=== PATIENT | male | born 1960 | race Caucasian/White ===

== ENCOUNTER → 2018-12-15 | Day surgery (SDC) | payer BC ==
[~2018-12-15] MED LIST: Buffered Lidocaine 1% SYRIN* 1 ML/SYRINGE INTRADERM ONE; Dexamethasone IV* 4 MG/ML 1 ML (4 MG) ONE; DiMENhydriNATE IV* 50 MG/ML VIAL IV PUSH PRN; EPINEPHRINE 1 MG/ML 1 ML VIAL ONE; Lactated Ringers 1000 ML Bag* 1,000 ML IV SCH; Lidocaine 1% w EPI 1:100,000* MDV 20 ML VIAL ONE; Lidocaine 2% PF * 5 ML VIAL ONE; Lidocaine 4% TOPICAL* 50 ML TOP.SOLN ONE; Metoclopramide IV* 5 MG/ML 2 ML VIAL ONE; Midazolam* 1 MG/ML 2 ML VIAL (2 MG) ONE; Naloxone* 0.4 MG/ML 1 ML VIAL IV PRN; Ondansetron INJ* 2 MG/ML VIAL ONE; Oxymetazoline 0.05% NASAL SPR* 15 ML BTL ONE; Propofol* 10 MG/ML 20 ML BTL ONE; Remifentanil* 2 MG VIAL ONE; Rocuronium* 10 MG/ML VIAL ONE; Succinylcholine* 20 MG/ML 10 ML VIAL ONE; Sugammadex * 200 MG/2 ML VIAL IV PUSH ONE; fentaNYL* 50 MCG/ML 2 ML VIAL (100 MCG VIAL) IV PRN; fentaNYL* 50 MCG/ML 2 ML VIAL (100 MCG VIAL) ONE; oxyCODONE TAB* 5 MG TAB ONE; oxyCODONE TAB* 5 MG TAB PO PRN
[2018-12-15 12:48] VITALS: BP 140/90
--- NOTE | 2018-12-15 21:36 | OP ---
DATE OF OPERATION: 12/15/18 - [facility] DATE OF : 64 SURGEON: Paulo Palacios MD. ASBESTOS REMOVAL SUPERVISOR: None. ANESTHESIA: General. PRE-OP DIAGNOSIS: Neoplasm, uncertain behavior, tongue base. POST-OP DIAGNOSIS: Neoplasm, uncertain behavior, tongue base. OPERATIVE PROCEDURE: Direct laryngoscopy with biopsies. ESTIMATED BLOOD LOSS: Less than 10 cc. SPECIMENS: Biopsies of tongue base. INDICATIONS: This is a 58-year-old male who presented to the office with oropharyngeal and throat pain. On exam in the office, was noted to have an exophytic lesion involving the lingual aspect of the right side of the jaw with extension onto the retromolar trigone. 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 Laryngoscopy in the office revealed what appeared to be a probable second primary in the vallecula to the right of midline, and so the patient was scheduled for biopsy of that lesion under anesthesia. DESCRIPTION OF PROCEDURE: On 12/15/18, the patient was brought to the operating room, general anesthesia was induced and an oral endotracheal tube was placed. The patient was draped, the table turned, and a time-out was performed. The tongue base was palpated manually and there was what was felt to be some firm abnormal tissue in the region of the vallecula. A variety of laryngoscopes including a sliding Zackery and Johana style laryngoscope were used to try to obtain optimal views of the tongue base and vallecula region. Ultimately, one was selected and was placed into suspension. A firm somewhat exophytic mass with central ulceration was noted in the tongue base region deep in the vallecula with some central ulceration. Multiple biopsies were taken with a cup forceps. 1/2 x 1/2 cottonoid pledgets with epinephrine were then placed to the biopsy sites and the laryngoscope was removed. After several minutes, the epinephrine-soaked pledgets were removed. Repeat laryngoscopy was performed. There appeared to be good hemostasis, and so the patient was turned to the care of the anesthesiologist. Prior to the use of the laryngoscope, a tooth guard was used over the upper teeth. This was removed prior to completion of the case. The patient was then extubated and delivered to the PACU in stable condition. [id number]/[facility] #: [id number] [facility]
== END | disposition home or self-care (01) ==
LOC: OR 09:01
PROVIDERS: ATTEND Otolaryngology
DX: C01 Malignant neoplasm of base of tongue (principal); Z72.0 Tobacco use; M54.2 Cervicalgia; F41.9 Anxiety disorder, unspecified; F10.20 Alcohol dependence, uncomplicated
CPT/HCPCS: 88305; 88342; 88365; A9270-GY; J0330; J1100; J2250; J2405; J2704; J2765; J3010

== ENCOUNTER 2019-01-11 14:04 | Observation (INO) | payer BC ==
--- OUTSIDE RECORDS SUMMARY | 2019-01-11 16:08 | XMS REPORT | Continuity of Care Document ---
:1960 External Reference #:[id number] Author Name Paulo Palacios M.D. 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 Tablets Omeprazole-Sodium 1 by mouth every Paulo Palacios, 12/06/2018 Bicarbonate day M.D. 40-1100mg Capsules [facility] Vitamin B12 please take one Paulo Palacios, 12/06/2018 1000mcg daily M.D. Tablets Ibuprofen 1 tab by mouth 60tabs Paulo Palacios, 12/06/2018 800mg Tablets every 8 hours as M.D. needed for pain Zinc Gluconate 1 by mouth every Unknown 50mg day Tablets Vitamin B1 1 Tab by mouth Unknown 250mg daily Tablets Vitamin D3 Super 1 by mouth every Unknown Strength day 50mcg (2000 Ut) Capsules Multi Vitamin Daily 1 by mouth every Unknown day Tablets Finasteride 1 1/4 by mouth Unknown 1mg Tablets every day Biotin 1 by mouth once Unknown 5000mcg Capsules a day Bupropion HCL ER (SR) 1 by mouth every Unknown day 150mg Tablets ER 12HR Immunizations CPT Code Status Date Vaccine Lot # 50545 Given 02/03/2003 Influenza Virus 3Yrs & Over [id number] Given 12/21/2001 Influenza Virus 3Yrs & Over Vital Signs Date Vital Result Comment 01/03/2019 10:57am Heart Rate 62 /min BP Systolic Sitting 120 mmHg BP Diastolic Sitting 84 mmHg Respiratory Rate 16 /min Pain Level 7 O2 % BldC Oximetry 97 % 12/20/2018 10:17am Heart Rate 71 /min BP Systolic Sitting 128 mmHg BP Diastolic Sitting 96 mmHg Body Temperature 98.2 F Pain Level 7 O2 % BldC Oximetry 96 % Results Test Acquired Date Facility Test Result H/L Range Note Comp Metabolic 12/29/2018 [facility] Sodium 143 mmol/L Normal 135-[address] [place] [address] [phone] Potassium 4.1 mmol/L Normal 3.5-5.0 Chloride 106 mmol/L Normal 101-111 Co2 Carbon Dioxide 30 mmol/L Normal 22-32 Anion Gap 7 mmol/L Normal 2-11 Glucose 94 mg/dL Normal 70-100 Blood Urea Nitrogen 22 mg/dL Normal 6-24 Creatinine 1.02 mg/dL Normal 0.67-1.17 BUN/Creatinine Ratio 21.6 High 8-20 Calcium 9.8 mg/dL Normal 8.6-10.3 Total Protein 7.1 g/dL Normal 6.4-8.9 Albumin 4.2 g/dL Normal 3.2-5.2 Globulin 2.9 g/dL Normal 2-4 Albumin/Globulin Ratio 1.4 Normal 1-3 Total Bilirubin 0.40 mg/dL Normal 0.2-1.0 Alkaline Phosphatase 91 U/L Normal 34-104 Alt 19 U/L Normal 7-52 Ast 15 U/L Normal 13-39 Egfr Non- 75.5 >60 Egfr 91.4 >60 1 CBC Auto 12/29/2018 [facility] White Blood 12.7 10^3/uL High 3.5-10.[address] [place] [address] [phone] Red Blood Count 4.73 10^6/uL Normal 4.18-5.48 Hemoglobin 13.4 g/dL Low 14.0-18.0 Hematocrit 41 % Low 42-52 Mean Corpuscular Volume 86 fL Normal 80-94 Mean Corpuscular Hemoglobin 28 pg Normal 27-31 Mean Corpuscular HGB Conc 33 g/dL Normal 31-36 Red Cell Distribution Width 13 % Normal 10-15 Platelet Count 300 10^3/uL Normal 150-450 Mean Platelet Volume 7.0 fL Low 7.4-10.4 Abs Neutrophils 8.4 10^3/uL High 1.5-7.7 Abs Lymphocytes 2.5 10^3/uL Normal 1.0-4.8 Abs Monocytes 1.2 10^3/uL High 0-0.8 Abs Eosinophils 0.5 10^3/uL Normal 0-0.6 Abs Basophils 0.1 10^3/uL Normal 0-0.2 Abs Nucleated RBC 0.0 10^3/uL Granulocyte % 65.9 % Lymphocyte % 20.1 % Monocyte % 9.4 % Eosinophil % 4.1 % Basophil % 0.5 % Nucleated Red Blood Cells % 0.1 Laboratory test 12/28/2018 [facility] Point of Care 95 mg/dL Normal 70-[address] [place] [address] [phone] Surgical 12/15/2018 [facility] Surgical SEE RESULT [address] [place] [address] [phone] PDFReport SEE IMAGE Surgical 12/06/2018 [facility] Surgical SEE RESULT 4, [address] Pathology BELOW [place] [id number] [phone] PDFReport [id number] <SEE NOTE> Order 12/06/2018 [facility] Biopsy Specimen for <pending> [address] Evaluation [place] [id number] [phone] 1 Because ethnic data is not always readily available, this report includes an eGFR for both -Americans and non- Americans. The National Kidney Disease Education Program (NKDEP) does not endorse the use of the MDRD equation for patients that are not between the ages of 18 and 70, are , have extremes of body size, muscle mass, or nutritional status, or are non- or non-. According to the National Kidney Foundation, irrespective of diagnosis, the stage of the disease is based on the level of kidney function: Stage Description GFR(mL/min/1.73 m(2)) 1 Kidney damage with normal or decreased GFR 90 2 Kidney damage with mild decrease in GFR 60-89 3 Moderate decrease in GFR 30-59 4 Severe decrease in GFR 15-29 5 Kidney failure <15 (or dialysis) 2 Coding Clerks Supervisor: [id number] 3 SEE RESULT BELOW Name: WESLEY SHERIDAN : [address]: Paulo Palacios MD Acct: [id number] Unit: [id number] AGE: 58 Location: OR Re12/15/18 SEX: M Status: REG [facility] SPEC: [id number] [place]: 12/15/18- [facility] DR: Paulo Palacios MD REQ: [id number] RECD: 12/15/18941 STATUS: SOUT _ ORDERED: LEVEL 4, IMMUNO-FIRST ADDENDUM Repeat p16 immunohistochemical staining, with appropriately reacting controls , is positive in benign surface epithelium and negative in invasive carcinoma. Addendum Signed (signature on file) Sherley Layton MD 01/11 0930 A p16 immunohistochemical stain, with appropriately reacting controls, was performed and is positive in surface epithelium but negative in invasive carcinoma. Addendum Signed (signature on file) Sherley Layton MD 1009 FINAL DIAGNOSIS Tongue base, biopsies: -- Invasive, moderately differentiated squamous cell carcinoma. -- Extent and depth of invasion cannot be assessed based on this limited biopsies. Comment: An immunohistochemical stain for p16 (HPV surrogate marker close (is pending and will be reported in an addendum. Dr. Layton has reviewed this case and concurs. CONTINUED ON NEXT PAGE DEPARTMENT OF PATHOLOGY, [address] [place] [address] Kyle Urrutia M.D. Director [facility] # [id number] PRE-OPERATIVE DIAGNOSIS Lesion-vallecular GROSS DESCRIPTION The specimen is received in formalin labeled, Tongue Base Biopsies, and consists of three rubio-pink irregular soft tissue fragments ranging from 0.6 x 0.4 x 0.3 cm to 1.1 x 0.8 x 0.4 cm. The two largest fragments are differentially inked, serially sectioned and the specimen is entirely submitted in one cassette. Signed by and Reported on: Kyle Urrutia MD 1330 END OF REPORT DEPARTMENT OF PATHOLOGY, [address] [place] [address] Kyle Urrutia M.D. 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 Addendum Signed (signature on file) Sherley Layton MD 1638 FINAL DIAGNOSIS Right retromolar trigone, biopsy: -- Invasive squamous cell carcinoma, well-differentiated. -- Lesional cells extend to the biopsy base and to at least one lateral specimen edge. PRE-OPERATIVE DIAGNOSIS Malignant neoplasm of mandible. GROSS DESCRIPTION The specimen is received in formalin with no source identified and a requisition labeled, Exophytic Mass of the Right Retromolar Trigone, and consists of a 1.5 x 0.6 x 0.3 cm aggregate of rubio-pink irregular soft tissue fragments which is submitted entirely in one cassette. CONTINUED ON NEXT PAGE DEPARTMENT OF PATHOLOGY, [facility] [employer] [place] [address] Kyle Urrutia M.D. Director [facility] # [id number] Signed by and Reported on: Sherley Layton MD 12/08/18 1043 END OF REPORT DEPARTMENT OF PATHOLOGY, [facility] [employer] [place] [address] Kyle Urrutia M.D. Director [facility] # [id number] Procedures Date Code Description Status 12/06/2018 57942 Biopsy;Oropharynx Completed 12/06/2018 44494 Fibroptic Laryngoscopy Completed Medical Devices Description No Information Available Encounters Type Date Location Provider Dx Diagnosis Office Visit 12/20/2018 [facility] C41.1 Malignant neoplasm 10:00a [facility] C01 Malignant neoplasm of base of tongue Office Visit 12/06/2018 3:00p [facility] D37.05 Neoplasm of [facility] 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 12/20/2018 C01 Malignant neoplasm of base of tongue Paulo Palacios M.D. 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 12/06/2018 R07.0 Pain in throat Paulo Palacios M.D. Plan of Treatment Future Appointment(s):03/21/2019 9:15 am - Paulo Palacios M.D. at [facility] J[facility]unrp77/28/2019 - Paulo Palacios M.D.C41.1 Malignant neoplasm of skepxolpQ92 Malignant neoplasm of base of tongue Functional Status Description No Information Available Mental Status Description No Information Available Referrals Refer to Reason for Referral Status Appt Date Mike Boykin MD MALIGNANT NEOPLASM OF THE MANDIBLE Sent 12/22/[address] [facility] [place] [id number] [phone] Bertha Aldana MD malignant neoplasm of the mandible Scheduled 12/28/2018 [address] [place] [address] [phone]
--- OUTSIDE RECORDS SUMMARY | 2019-01-11 16:08 | XMS REPORT | Continuity of Care Document ---
:1960 External Reference #:[id number] Author Name Chana Bergman PA Address [address] [place] [address] Care Team Providers Name Role Phone Manny Calderón MD - Family Care Team Information Public Health Nutritionist Medicine Paulo Palacios DR Care Team Information Public Health Nutritionist [phone] Problems Active Problems Provider Date Adjustment disorder with mixed emotional Topher Jeong DO Onset: 2012 features Alcohol dependence Topher Jeong DO Onset: 02/03/2012 Elevated levels of transaminase & lactic acid Topher Jeong DO Onset: dehydrogenase Social History Type Date Description Comments Sex Unknown Tobacco Use Start: Unknown currently smokes 1/2 Pack Daily Smoking Status Reviewed: 12/31/17 currently smokes 1/2 Pack Daily ETOH Use Has consumed alcohol in the past Tobacco Use Start: Unknown Patient is a current smoker, smokes 1 and 1/2 ppd every day Allergies, Adverse Reactions, Alerts Description No Known Drug Allergies Medications Active Medications SIG Qnty Indications Ordering Date Provider Lidocaine Viscous HCL swish and spit 15 300ml J02.9 Tapan Hoff, 2018 milliliters three DO 2% Solution times daily as needed Bupropion 1 tablet by mouth 180tabs F17.208 Tapan Hoff, 08/27/2018 Hydrochloride ER (SR) twice daily DO 150mg Tablets ER 12HR Omeprazole 1 by mouth every 90caps K29.00 Tapan Hoff, 12/25/2017 40mg day DO Capsules K21.9 Paroxetine HCL 1 by mouth every day 90tabs F43.23 Tapan Hoff DO 01/19 30mg Tablets Vitamin D3 1 by mouth every day Jean-PaulTopher quinn, 12/14/2015 1000Unit with meal with DO Chewtabs meat/fat/oil with dinner One Daily Mens Jean-PaulCheryl quinns, 03/16/2014 Tablets DO Vitamin B-12 ER Jean-PaulCheryl quinns, 12/09/2013 1000mcg DO Tablets ER Thiamine HCL 2 po qd Jena-PaulTimTopher, 03/11/2012 100mg DO Tablets Finasteride 1 by mouth every day Unknown 1mg Tablets DR Rice History Medications Amoxicillin/Clavulanate 1 by mouth 14tabs K11.5 Luis Eduardo, 10/13/2018 - Potassium twice a day DO Tapan 10/20/2018 875-125mg Tablets x 7 days Immunizations CPT Code Status Date Vaccine Reaction Lot # [id number] Given 08/27/2018 Pneumococcal 23 Immunization [id number] Adult Or Immunosuppressed Patient Q2039 Given 12/20/2017 Flu Vaccine NOS 51093 Given 12/29/2016 Afluria Or Fluvirin Flu Vac Given at [facility] Intramuscular 281 Q2035 Given 12/15/2015 Afluria Imunization Given At Pharmacy RA/222 Q2035 Given 12/15/2015 Afluria Imunization Given At Pharmacy [facility]/222 Q2037 Given 12/14/2014 Fluvirin Immunization 80368 Given 08/17/2014 Tdap (Adacel) Ages 7 And [id number] Above Only 24231 Given 11/10/2013 Afluria Or Fluvirin Flu Vac RECEIVED AT RA/222 Intramuscular 39551 Given 12/09/2012 Afluria Or Fluvirin Flu Vac Intramuscular 83146 Given 12/28/2009 Afluria Or Fluvirin Flu Vac Intramuscular 36924 Given 12/05/2008 Afluria Or Fluvirin Flu Vac Intramuscular 29085 Given 12/10/2007 Afluria Or Fluvirin Flu Vac Intramuscular 66584 Given 12/09/2006 Afluria Or Fluvirin Flu Vac Intramuscular 20831 Given 01/06/2006 Afluria Or Fluvirin Flu Vac Intramuscular 84490 Given 01/14/2005 Afluria Or Fluvirin Flu Vac Intramuscular 60348 Given 01/14/2005 Afluria Or Fluvirin Flu Vac Intramuscular 39634 Refused 12/09/2018 Influenza Vac, Quadrivalent, Split, 0.5mL Dosage, Im Use Vital Signs Date Vital Result Comment 12/09/2018 2:14pm Body Temperature 98.3 F Weight 220.00 lb Heart Rate 83 /min BP Systolic 122 mmHg BP Diastolic 82 mmHg Respiratory Rate 18 /min Height 74 inches 6'2" O2 % BldC Oximetry 94 % BMI (Body Mass Index) 28.2 kg/m2 11/22/2018 2:27pm Body Temperature 98.5 F Weight 223.00 lb Heart Rate 76 /min BP Systolic 120 mmHg BP Diastolic 70 mmHg Respiratory Rate 18 /min Height 74 inches 6'2" BMI (Body Mass Index) 28.6 kg/m2 Results Test Date Facility Test Result H/L Range Note CBC with Auto Diff-[facility]cmg 11/22/2018 [facility] WBC 10.8 K/uL 4.1-11.0 RBC 4.87 M/uL 4.60-6.10 Hemoglobin 14.3 gm/dL 13.5-18.0 Hematocrit 42.2 % 41.0-53.0 MCV 86.6 fL 80.0-97.0 MCH 29.3 pg 27.0-32.0 MCHC 33.8 g/dL 32.0-36.0 RDW 12.8 % 11.5-14.5 PLT Count 294 K/ul 140-400 MPV 7.7 FL 7.1-10.7 Neutrophil 60.4 % 35.0-75.0 Lymphocyte 25.9 % 16.0-52.0 Monocyte 8.9 % 2.0-10.0 Eosinophil 3.9 % 0.0-5.0 Basophil 0.9 % 0.0-4.0 Abs Neutrophils 6.5 K/uL 2.1-8.0 Abs Lymphocytes 2.8 K/uL 0.8-5.5 Abs Monocytes 1.0 K/uL 0.1-1.0 Abs Eosinophils 0.4 K/uL 0.0-0.5 Abs Basophils 0.1 K/uL 0.0-0.3 Comprehensive Met Panel-[facility] 11/22/2018 [facility] Sodium 140 mmol/L 135- 146 1 Potassium 3.6 mmol/L 3.5-5.2 Chloride# 103 mmol/L 97-110 2 Carbon Dioxide 28 mmol/L 24-34 Calcium 9.4 mg/dL 8.5-10.5 3 Glucose 69 mg/dL Low 70-105 BUN 15 mg/dL 6-26 Creatinine 1.0 mg/dL 0.5-1.4 Total Protein 6.3 g/dL 6.0-8.0 Albumin 4.1 g/dL 3.6-4.9 Globulin 2.2 g/dL 2.0-3.5 A/G Ratio 1.9 Ratio 1.0-2.2 Total Bilirubin 0.6 mg/dL 0.1-1.3 Alkaline Phosphatase 81 U/L 24-140 Alt 29 U/L 3-42 Ast 29 U/L 8-42 Anion Gap 9 mmol/L 5-15 4 Female Egfr 61 >60 5 Male Egfr 81 >60 6 Lyme Igm/Igg AB -RL 11/22/2018 [facility] Lyme Igm/Igg AB @ NEGATIVE (Neg) 7 Ebv Evaluation -RL 11/22/2018 [facility] Ebv Vca Igg @ POSITIVE (Neg) 8 Ebv Vca Igm @ NEGATIVE (Neg) Ebv Early Ag Igg @ NEGATIVE (Neg) Ebv Nuclear Ag Igg @ POSITIVE (Neg) 9 Laboratory test 11/22/2018 [facility] Anti-Streptolysn O <200 IU/mL (0-200 ) 10 finding CBC with Auto 08/20/2018 [facility] WBC 7.6 K/uL 4.1-11.0 Diff-fcmg RBC 4.98 M/uL 4.60-6.10 Hemoglobin 14.5 gm/dL 13.5-18.0 Hematocrit 43.6 % 41.0-53.0 MCV 87.5 fL 80.0-97.0 MCH 29.2 pg 27.0-32.0 MCHC 33.4 g/dL 32.0-36.0 RDW 12.9 % 11.5-14.5 PLT Count 279 K/ul 140-400 MPV 7.8 FL 7.1-10.7 Neutrophil 50.0 % 35.0-75.0 Lymphocyte 37.4 % 16.0-52.0 Monocyte 7.4 % 2.0-10.0 Eosinophil 4.1 % 0.0-5.0 Basophil 1.1 % 0.0-4.0 Abs Neutrophils 3.8 K/uL 2.1-8.0 Abs Lymphocytes 2.9 K/uL 0.8-5.5 Abs Monocytes 0.6 K/uL 0.1-1.0 Abs Eosinophils 0.3 K/uL 0.0-0.5 Abs Basophils 0.1 K/uL 0.0-0.3 Comprehensive Met Panel-[facility] 08/20/2018 [facility] Sodium 140 mmol/L 135- 146 11 Potassium 4.0 mmol/L 3.5-5.2 Chloride# 103 mmol/L 97-110 12 Carbon Dioxide 29 mmol/L 24-34 Calcium 9.8 mg/dL 8.5-10.5 13 Glucose 86 mg/dL 70-105 BUN 15 mg/dL 6-26 Creatinine 1.1 mg/dL 0.5-1.4 Total Protein 6.5 g/dL 6.0-8.0 Albumin 4.3 g/dL 3.6-4.9 Globulin 2.2 g/dL 2.0-3.5 A/G Ratio 2.0 Ratio 1.0-2.2 Total Bilirubin 0.7 mg/dL 0.1-1.3 Alkaline Phosphatase 74 U/L 24-140 Alt 34 U/L 3-42 Ast 32 U/L 8-42 Anion Gap 8 mmol/L 5-15 14 Female Egfr 55 Low >60 15 Male Egfr 74 >60 16 Laboratory test finding 08/20/2018 [facility] Magnesium 2.0 mg/dL 1.5-2.7 Vitamin D 25 Hydroxy 46 ng/mL 30-100 17 1 Updated reference range on new analyzer 2 Updated reference range on new analyzer 3 Updated reference range 06-23-2018 4 Updated Reference Range 5 Concerning GFR Guidelines for Americans: Normal function or mild renal disease, if clinically at risk: >/= 60 mL/min Moderately decreased: 30-59 Severely decreased: 15-29 Renal failure: <15 There is reduced accuracy above 60ml/min/1.73 m squared, but the numeric value may be clinically useful in the near 60 range 6 Concerning GFR Guidelines: Normal function or mild renal disease, if clinically at risk: >/= 60 mL/min Moderately decreased: 30-59 Severely decreased: 15-29 Renal failure: <15 There is reduced accuracy above 60ml/min/1.73 m squared, but the numeric value may be clinically useful in the near 60 range Glomerular Filtration Rate (GFR) is estimated based on the CKD-EPI equation, which assumes a steady state for creatinine as recommended by the National Kidney Disease Education Program in conjunction with the National Institutes of Health and the National Kidney Foundation. Clinical conditions in which it may be necessary to measure GFR by using clearance methods include extremes of age and body size, severe malnutrition or obesity, diseases of skeletal muscle, paraplegia or quadriplegia, vegetarian diet, rapidly changing kidney function, and calculation of the dose of potentially toxic drugs that are excreted by the kidneys. 7 A Negative serologic test for Lyme Disease indicates no serologic evidence of infection with B burgdorferi at the time this specimen was collected. A repeat specimen should be collected in 2 to 4 weeks if clinically indicated. Unless otherwise specified, testing [place] [address] 8 May indicate a current or previous infection. 9 May indicate a current or previous infection. Unless otherwise specified, testing performed [place] [address] 10 Unless otherwise specified, testing [place] [address] 11 Updated reference range on new analyzer 12 Updated reference range on new analyzer 13 Updated reference range 06-23-2018 14 Updated Reference Range 15 Concerning GFR Guidelines for Americans: Normal function or mild renal disease, if clinically at risk: >/= 60 mL/min Moderately decreased: 30-59 Severely decreased: 15-29 Renal failure: <15 There is reduced accuracy above 60ml/min/1.73 m squared, but the numeric value may be clinically useful in the near 60 range 16 Concerning GFR Guidelines: Normal function or mild renal disease, if clinically at risk: >/= 60 mL/min Moderately decreased: 30-59 Severely decreased: 15-29 Renal failure: <15 There is reduced accuracy above 60ml/min/1.73 m squared, but the numeric value may be clinically useful in the near 60 range Glomerular Filtration Rate (GFR) is estimated based on the CKD-EPI equation, which assumes a steady state for creatinine as recommended by the National Kidney Disease Education Program in conjunction with the National Institutes of Health and the National Kidney Foundation. Clinical conditions in which it may be necessary to measure GFR by using clearance methods include extremes of age and body size, severe malnutrition or obesity, diseases of skeletal muscle, paraplegia or quadriplegia, vegetarian diet, rapidly changing kidney function, and calculation of the dose of potentially toxic drugs that are excreted by the kidneys. 17 Clinical Guidelines for recommended serum 25(OH)Vitamin D Deficient at less than 20 ng/mL Insufficient at 20 to <30 ng/mL Sufficient at 30-100 ng/mL Toxicity at greater than 100 ng/mL Procedures Date Code Description Status 12/09/2018 06663 Measure Blood Oxygen Level Single Determination Completed 12/09/2018 87540 Electrocardiogram Complete Completed 10/13/2018 95627 Measure Blood Oxygen Level Single Determination Completed 06/03/2012 06100984 Colonoscopy Completed Medical Devices Description No Information Available Encounters Type Date Location Provider Dx Diagnosis Office Visit 11/22/2018 [facility] Chana Bergman PA J02.9 Acute pharyngitis, 2:30p unspecified M54.2 Cervicalgia Z68.28 Body mass index (BMI) 28.0-28.9, adult Office Visit 10/13/2018 10:45a [facility] Chana Bergman PA K11.5 Sialolithiasis Z68.29 Body mass index (BMI) 29.0-29.9, adult Office Visit 08/27/2018 3:00p 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 Chana Bergman PA 12/09/2018 Z01.818 Encounter for other preprocedural examination Schedule, Laboratory 12/09/2018 Z68.28 Body mass index (BMI) 28.0-28.9, adult Chana Bergman PA 11/22/2018 M54.2 Cervicalgia Chana Bergman PA 11/22/2018 J02.9 Acute pharyngitis, unspecified Chana Bergman PA 11/22/2018 J02.9 Acute pharyngitis, unspecified Chana Bergman PA 11/22/2018 M54.2 Cervicalgia Chana Bergman PA 11/22/2018 Z68.28 Body mass index (BMI) 28.0-28.9, adult Chana Bergman PA 11/22/2018 M54.2 Cervicalgia Schedule, Laboratory 11/22/2018 J02.9 Acute pharyngitis, unspecified Schedule, Laboratory 11/22/2018 J02.9 Acute pharyngitis, unspecified [facility] 10/13/2018 K11.5 Sialolithiasis Chana Bergman PA 10/13/2018 Z68.29 Body mass index (BMI) 29.0-29.9, adult Chana Bergman PA 08/27/2018 F43.23 Adjustment disorder with mixed anxiety and Chana Bergman PA depressed mood 08/27/2018 K21.9 Gastro-esophageal reflux disease without Chana Bergman PA esophagitis 08/27/2018 E55.9 Vitamin D deficiency, unspecified Chana Bergman PA 08/27/2018 Z68.28 Body mass index (BMI) 28.0-28.9, adult Chana Bergman PA 08/27/2018 F10.21 Alcohol dependence, in remission Chana Bergman PA 08/27/2018 Z23 Encounter for immunization Chana Bergman PA 08/20/2018 K21.9 Gastro-esophageal reflux disease without Chana Bergman PA esophagitis 08/20/2018 K21.9 Gastro-esophageal reflux disease without Schedule, Laboratory esophagitis 08/20/2018 E55.9 Vitamin D deficiency, unspecified Chana Bergman PA 08/20/2018 E55.9 Vitamin D deficiency, unspecified Schedule, Laboratory 08/20/2018 K21.9 Gastro-esophageal reflux disease without [facility] esophagitis 08/20/2018 E55.9 Vitamin D deficiency, unspecified [facility] Plan of Treatment Future Appointment(s):02/28/2019 2:00 pm - Chana Bergman PA at [facility]2018 - Chana Bergman PAZ01.818 Encounter for other preprocedural examinationNew Xrays:Chest Xray, 2 Views, Scheduled: 12/10/18Comments:Hold vitamins and ibuprofen morning of surgery Pt appears cardiovasc and cardiopulm stable for proposed surgeryLabs and CXR pendingFollow up:PrnD37.05 Neoplasm of uncertain behavior of pharynxComments:Plan as cmxryW20.28 Body mass index (BMI) 28.0-28.9, adult Functional Status Description No Information Available Mental Status Description No Information Available Referrals Refer to Dr Reason for Referral Status Appt Date Paulo Palacios DR Persistent sore throat appointment scheduled and Closed 12/06/2018 spouse notified og the appointment date and time/scg/12/[address] [place] [address] [phone]
--- OUTSIDE RECORDS SUMMARY | 2019-01-11 16:08 | XMS REPORT | Continuity of Care Document ---
:1960 External Reference #:[id number] Author Name Paulo Palacios M.D. 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 Problems Description No Information Available Social History Type Date Description Comments Sex Unknown Tobacco Use Start: Unknown Patient was a cigarette smoker, current status is unknown ETOH Use Denies alcohol use Tobacco Use Start: Unknown Light tobacco smoker (10 or fewer cigarettes/day) Smoking Status Reviewed: 12/20/18 Light tobacco smoker (10 or fewer cigarettes/day) [...] CPT Code Status Date Vaccine Lot # [id number] Given 02/03/2003 Influenza Virus 3Yrs & Over 40703 Given 12/21/2001 Influenza Virus 3Yrs & Over Vital Signs Date Vital Result Comment 12/20/2018 10:17am Heart Rate 71 /min BP Systolic Sitting 128 mmHg BP Diastolic Sitting 96 mmHg Body Temperature 98.2 F Pain Level 7 O2 % BldC Oximetry 96 % Results Test Date Facility Test Result H/L Range Note Surgical 12/15/2018 [facility] Surgical SEE RESULT [address] [place] [address] [phone] [facility] [id number] <SEE NOTE> Surgical 12/06/2018 [facility] Surgical SEE RESULT 2, [address] [place] [address] [phone] [facility] [id number] <SEE NOTE> Order 12/06/2018 [facility] Biopsy Specimen for <pending> [address] [place] [address] [phone] 1 SEE RESULT BELOW Name: WESLEY SHERIDAN : [address]: Paulo Palacios MD Acct: [id number] Unit: [id number] AGE: 58 Location: OR Re12/15/18 SEX: M Status: REG [facility] SPEC: [id number] MARGAUX: 12/15/18- SUBM DR: Paulo Palacios MD REQ: [id number] RECD: 12/15/18-3422 STATUS: SOUT _ ORDERED: LEVEL 4, IMMUNO-FIRST ADDENDUM A p16 immunohistochemical stain, with appropriately reacting [...] Layton has reviewed this case and concurs. PRE-OPERATIVE DIAGNOSIS Lesion-vallecular CONTINUED ON NEXT PAGE DEPARTMENT OF PATHOLOGY, [address] [place] [address] Kyle Urrutia M.D. Director [facility] # [id number] GROSS DESCRIPTION The specimen is received in [...] 1330 END OF REPORT DEPARTMENT OF PATHOLOGY, [address] [place] [address] Kyle Urrutia M.D. Director [facility] # [id number] SEE RESULT BELOW Name: WESLEY SHERIDAN : [address]: Paulo Palacios MD Acct: [id number] Unit: [id number] AGE: 58 Location: [facility] Re12/06/18 SEX: M Status: REG REF SPEC: [id number] MARGAUX: 12/06/18-[address] [facility] [address]: Paulo Palacios MD REQ: [id number] RECD: 12/07/18 STATUS: SOUT _ ORDERED: LEVEL 4, IMMUNO-FIRST COMMENTS: [id number] ADDENDUM P16 immunohistochemical staining, with appropriately reacting [...] CONTINUED ON NEXT PAGE DEPARTMENT OF PATHOLOGY, [facility] [employer] [place] [address] Kyle Urrutia M.D. Director [facility] # [id number] Signed by and Reported on: Sherley Layton MD 12/08/18 1043 END OF REPORT DEPARTMENT OF PATHOLOGY, [facility] [employer] [place], [place] [address] Kyle Urrutia M.D. Director [facility] # [id number] Procedures Date Code Description Status 12/06/2018 57436 Biopsy;Oropharynx Completed 12/06/2018 99152 Fibroptic Laryngoscopy Completed Medical Devices Description No Information Available Encounters Type Date Location Provider Dx Diagnosis Office Visit 12/06/2018 [facility] Palacios D37.05 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 12/20/2018 C01 Malignant neoplasm of base of tongue Paulo Palacios M.D. 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 12/06/2018 R07.0 Pain in throat Paulo Palacios M.D. Plan of Treatment Future Appointment(s):01/03/2019 10:45 am - Paulo Palacios M.D. at [facility] AT Xcmkhebz79/28/2019 - Paulo Palacios M.D.C41.1 Malignant neoplasm of yaagaigzO72 Malignant neoplasm of base of tongue Functional Status Description No Information Available Mental Status Description No Information Available Referrals Refer to Reason for Referral Status Appt Date Mike Boykin MD MALIGNANT NEOPLASM OF THE MANDIBLE Created [address] [facility] [place] [address] [phone] Bertha Aldana MD malignant neoplasm of the mandible Created [address] [place] [address] [phone]
--- OUTSIDE RECORDS SUMMARY | 2019-01-11 16:08 | XMS REPORT | Continuity of Care Document ---
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 Medicine Problems Active Problems Provider Date Adjustment disorder [...] Lidocaine Viscous HCL swish and spit 15 100ml J02.9 Tapan Hoff, 2018 milliliters three DO 2% Solution times daily as needed Bupropion 1 tablet by mouth 180tabs F17.208 Tapan Hoff, 08/27/2018 Hydrochloride ER (SR) twice daily DO 150mg Tablets ER 12HR Omeprazole 1 by mouth every 90caps K29.00 Tapan Hoff, 12/25/2017 40mg day DO Capsules DR K21.9 Paroxetine HCL 1 by mouth every day 90tabs F43.23 Tapan Hoff DO 01/19 30mg Tablets Vitamin D3 1 by mouth every day Jean-Paul, Topher, 12/14/2015 1000Unit with meal with DO [place] meat/fat/oil with dinner One Daily Mens Topher Jeong, 03/16/2014 Tablets DO Vitamin B-12 ER Topher Jeong, 12/09/2013 1000mcg DO Tablets ER Thiamine HCL 2 po qd Topher Jeong, 03/11/2012 100mg DO Tablets Finasteride 1 by mouth every day Unknown 1mg Tablets DR Rice History Medications Amoxicillin/Clavulanate 1 by mouth 14tabs K11.5 Hoff, 10/13/2018 - Potassium twice a day DO Tapan 10/20/2018 875-125mg Tablets x 7 days Immunizations CPT Code Status Date Vaccine Reaction Lot # [id number] Given 08/27/2018 Pneumococcal 23 Immunization [id number] Adult Or Immunosuppressed Patient Q2039 Given 12/20/2017 Flu Vaccine NOS 89177 Given 12/29/2016 Afluria Or Fluvirin Flu Vac Given at [facility] Aid,inge Intramuscular 281 Q2035 Given 12/15/2015 Afluria Imunization Given At Pharmacy RA/222 Q2035 Given 12/15/2015 Afluria Imunization Given At Pharmacy [facility]/222 Q2037 Given 12/14/2014 Fluvirin Immunization 71073 Given 08/17/2014 Tdap (Adacel) Ages 7 And [id number] Above Only 93736 Given 11/10/2013 Afluria Or Fluvirin Flu Vac RECEIVED AT RA/222 Intramuscular 65412 Given 12/09/2012 Afluria Or Fluvirin Flu Vac Intramuscular 11955 Given 12/28/2009 Afluria Or Fluvirin Flu Vac Intramuscular 01711 Given 12/05/2008 Afluria Or Fluvirin Flu Vac Intramuscular 17109 Given 12/10/2007 Afluria Or Fluvirin Flu Vac Intramuscular 65771 Given 12/09/2006 Afluria Or Fluvirin Flu Vac Intramuscular 74013 Given 01/06/2006 Afluria Or Fluvirin Flu Vac Intramuscular 76156 Given 01/14/2005 Afluria Or Fluvirin Flu Vac Intramuscular 47173 Given 01/14/2005 Afluria Or Fluvirin Flu Vac Intramuscular Vital Signs Date Vital Result Comment 11/22/2018 2:27pm Body Temperature 98.5 F Weight 223.00 lb Heart Rate 76 /min BP Systolic 120 mmHg BP Diastolic 70 mmHg Respiratory Rate 18 /min Height 74 inches 6'2" BMI (Body Mass Index) 28.6 kg/m2 10/13/2018 10:42am Body Temperature 98.5 F Weight 226.00 lb Heart Rate 85 /min BP Systolic 128 mmHg BP Diastolic 80 mmHg Respiratory Rate 18 /min Height 74 inches 6'2" O2 % BldC Oximetry 95 % BMI (Body Mass Index) 29.0 kg/m2 Results Test Date Facility Test Result H/L Range Note Laboratory test 11/22/2018 [facility] Anti-Streptolys <pending> finding n O -RL CBC with Auto 08/20/2018 [facility] WBC 7.6 K/uL 4.1-11.0 Diff-fcmg RBC 4.98 [...] 0.1 K/uL 0.0-0.3 Comprehensive Met Panel-[facility] 08/20/2018 [facility] Sodium 140 mmol/L 135- 146 1 Potassium 4.0 mmol/L 3.5-5.2 Chloride# 103 mmol/L 97-110 2 Carbon Dioxide 29 mmol/L 24-34 Calcium 9.8 mg/dL 8.5-10.5 3 Glucose 86 mg/dL 70-105 BUN 15 mg/dL 6-26 Creatinine 1.1 mg/dL 0.5-1.4 Total Protein 6.5 g/dL 6.0-8.0 Albumin 4.3 g/dL 3.6-4.9 Globulin 2.2 g/dL 2.0-3.5 A/G Ratio 2.0 Ratio 1.0-2.2 Total Bilirubin 0.7 mg/dL 0.1-1.3 Alkaline Phosphatase 74 U/L 24-140 Alt 34 U/L 3-42 Ast 32 U/L 8-42 Anion Gap 8 mmol/L 5-15 4 Female Egfr 55 Low >60 5 Male Egfr 74 >60 6 Laboratory test finding 08/20/2018 [facility] Magnesium 2.0 mg/dL 1.5-2.7 Vitamin D 25 Hydroxy 46 ng/mL 30-100 7 1 Updated reference range on new analyzer [...] that are excreted by the kidneys. 7 Clinical Guidelines for recommended serum 25(OH)Vitamin D Deficient at less than 20 ng/mL Insufficient at 20 to <30 ng/mL Sufficient at 30-100 ng/mL Toxicity at greater than 100 ng/mL Procedures Date Code Description Status 10/13/2018 78026 Measure Blood Oxygen Level Single Determination Completed 06/03/2012 17042563 Colonoscopy Completed Medical Devices Description No Information Available Encounters Type Date Location Provider Dx Diagnosis Office Visit 10/13/2018 10:45a [facility] Chana Bergman PA K11.5 Sialolithiasis Z68.29 Body mass index (BMI) 29.0-29.9, adult Office Visit 08/27/2018 3:00p [facility] Chana Bergman PA F43.23 Adjustment disorder with mixed anxiety and depressed mood K21.9 Gastro-esophageal reflux disease without esophagitis E55.9 Vitamin D deficiency, unspecified Z68.28 Body mass index (BMI) 28.0-28.9, adult F10.21 Alcohol dependence, in remission Z23 Encounter for immunization Assessments Date Code Description Provider 11/22/2018 J02.9 Acute pharyngitis, unspecified Chana Bergman PA 11/22/2018 M54.2 Cervicalgia Chana Bergman PA 11/22/2018 Z68.28 Body mass index (BMI) 28.0-28.9, adult Chana Bergman PA 11/22/2018 M54.2 Cervicalgia Schedule, Laboratory 11/22/2018 J02.9 Acute pharyngitis, unspecified Schedule, Laboratory 10/13/2018 K11.5 Sialolithiasis Chana Bergman PA 10/13/2018 [...] 2:00 pm - Chana Bergman PA at [facility]2018 - Chana Bergman PAJ02.9 Acute pharyngitis, unspecifiedNew Medication: Lidocaine Viscous HCL 2 % - swish and spit 15 milliliters three times daily as neededComments:Will check labs as notedIf no obvious cause will refer to Dr. Haja Agosto lidocaine to help with painCall with questions/concernsFollow up: PrnM54.2 CervicalgiaComments:Will check Lyme titer for evalZ68.28 Body mass index (BMI) 28.0-28.9, adult Functional Status Description No Information Available Mental Status Description No Information Available Referrals Description No Information Available
--- OUTSIDE RECORDS SUMMARY | 2019-01-11 16:08 | XMS REPORT | Continuity of Care Document ---
:1960 External Reference #:[id number] Author Name Paulo Palacios M.D. (transmitted by agent of provider Too Sinclair) Address [address] [place] [address] Care Team Providers Name Role Phone Gerardo Caldwell MD - Cardiovascular Care Team Information [employer] [phone] Disease Chana Bergman P.A. 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 Tablets Omeprazole-Sodium 1 by mouth every Paulo Palacios, 12/06/2018 Bicarbonate day M.D. 40-1100mg Capsules [facility] Vitamin B12 please take one Paulo Palacios, 12/06/2018 1000mcg daily M.D. Tablets Ibuprofen 1 tab by mouth 60tabs Paulo Palacios, 12/06/2018 800mg Tablets every 8 hours as M.D. needed for pain Zinc Gluconate 1 by mouth every Unknown 50mg day Tablets Vitamin B1 Unknown 250mg Tablets Vitamin D3 Super 1 by mouth [...] CPT Code Status Date Vaccine Lot # [id number] Given 02/03/2003 Influenza Virus 3Yrs & Over 26591 Given 12/21/2001 Influenza Virus 3Yrs & Over Vital Signs Description No Information Available Results Description No Information Available Procedures Description No Information Available Medical Devices Description No Information Available Encounters Description No Information Available Assessments Description No Information Available Plan of Treatment Future Appointment(s):12/20/2018 10:00 am - Paulo Palacios M.D. at [facility] Functional Status Description No Information Available Mental Status Description No Information Available Referrals Description No Information Available
--- NOTE | 2019-01-11 16:41 | PN ---
Progress Note - Progress Note Date of Service: 01/11/19 SOAP: Subjective: Requested to evaluate patient at bedside for bleeding at the G-tube site. Patient denies any pain at the G-tube site. Denies nausea or vomiting. Objective: Selected Entries 01/11/19 16:33 Temperature 97.9 F Temperature Oral Source Pulse Rate 66 Respiratory 18 Rate Blood Pressure 138/69 (mmHg) O2 Sat by Pulse 98 Oximetry NAD, AAO x 3 Dressing at G-tube site is <50% with dry blood. The G-tube back as approximately 250 mL's of fluid sustained with blood with scattered blood clots. The site is soft and nontender with palpation. Assessment: 58-year-old man status post gastrostomy tube placement with ultrasound and fluoroscopic guidance. There is no clinical evidence of pathologic postoperative bleeding. As I discussed with the patient, Tiffanie the [facility] nurse and TAIL EDGER Felicia Garcia, the fluid in the drainage bag is the contrast and sterile water mixed with a small amount of blood. The bleeding at the external bandage is due to superficial subcutaneous bleeding secondary to increased subcutaneous hydrostatic pressure by injection of bupivacaine. Plan: 1. No clinical evidence of bleeding complication or tube dislodgment. 2. Continue IR g-tube protocol including drainage until 2300 hrs. followed by clamping of the tube.
[2019-01-11] MEDS ORDERED: Lactated Ringers 1000 ML Bag* 1,000 ML IV SCH (17:00)
[2019-01-11] MEDS ORDERED: Morphine INJ* 4 MG/ML 1 ML SYRINGE (NEW SYRINGE VERSION) IV PRN (17:15)
[2019-01-11] MEDS ORDERED: Ondansetron INJ* 2 MG/ML VIAL IV PRN (18:15)
[2019-01-11 18:19] LABS: Hematocrit 35 % (42-52); Hemoglobin 11.5 g/dL (14.0-18.0)
[2019-01-11] MEDS ORDERED: HYDROcodone/ACET. 7.5/325 LIQ* 15 ML UDC ONE (18:20)
[2019-01-11] MEDS ORDERED: Ondansetron INJ* 2 MG/ML VIAL ONE (18:20)
[2019-01-11] MEDS: HYDROcodone/ACET. 7.5/325 LIQ* 15 ML UDC PO PRN (23:04)
[2019-01-12] MEDS: HYDROcodone/ACET. 7.5/325 LIQ* 15 ML UDC PO PRN ×3 (03:53→11:26)
[2019-01-12 06:02] LABS: ABS Lymphocytes 1.3 10^3/ul (1.0-4.8); ABS Monocytes 1.4 10^3/ul (0-0.8); Eosinophil % 0.1 %; Hematocrit 31 % (42-52); Hemoglobin 10.2 g/dL (14.0-18.0); Lymphocyte % 7.2 %; Mean Corpuscular HGB Conc 33 g/dL (31-36); Mean Corpuscular Hemoglobin 28 pg (27-31); Mean Corpuscular Volume 86 fL (80-94); Mean Platelet Volume 6.6 fL (7.4-10.4); Platelet Count 290 10^3/uL (150-450); Red Blood Count 3.58 10^6 /uL (4.18-5.48); Red Cell Distribution Width 13 % (10-15); White Blood Count 17.8 10^3/uL (3.5-10.8)
[2019-01-12 06:41] LABS: Albumin 3.2 g/dL (3.2-5.2); Albumin/Globulin Ratio 1.3 (1-3); BUN/Creatinine Ratio 43.7 (8-20); Calcium 8.3 mg/dL (8.6-10.3); EGFR African American 90.4 (>60); EGFR Non-African American 74.7 (>60); Globulin 2.5 g/dL (2-4); Total Bilirubin 0.4 mg/dL (0.2-1.0); Total Protein 5.7 g/dL (6.4-8.9)
--- NOTE | 2019-01-12 10:46 | PN ---
Progress Note - Progress Note Date of Service: 01/12/19 SOAP: Subjective: The patient denies any abdominal pain or sense of fullness. Denies nausea or emesis. Patient states he feels well and wants to go home. Objective: Laboratory Tests 01/12/19 05:52 WBC 17.8 H RBC 3.58 L Hgb 10.2 L Hct 31 L Selected Entries 01/12/19 09:29 Temperature 98.4 F Temperature Oral Source Pulse Rate 85 Respiratory 18 Rate Blood Pressure 115/63 (mmHg) Blood Pressure 80 Mean O2 Sat by Pulse 98 Oximetry NAD, AAO x 3 Patient sitting up in bed discussing tube feeds with nutritional yeast supervisor. Abdomen is soft and nontender. Dressing with dry blood unchanged from previous night. No anthony blood in clamped feeding tube. Assessment: 58-year-old man postoperative day #1 status post percutaneous gastrostomy tube placed with ultrasound and fluoroscopic guidance. The patient has not had any bleeding overnight and is currently pain and nausea free with the feeding tube clamped since 2300 hrs. the previous night. Slight reduction in hemoglobin and hematocrit is suspected to be dilutional secondary to IV fluids. Leukocytosis is expected postsurgery. Plan: 1. DC to home. 2. Tube feeds may commence at the direction of the patient's oncology team and nutrition. 3. There are 3 percutaneous retention tacks that should be removed in 5-7 days. If this cannot be done at the oncology office, please direct patient to imaging department at his convenience. 4. Routine feeding tube exchange will be scheduled in 8-12 weeks with interventional radiology. The patient and his were encouraged to call interventional radiology if there are any issues with the feeding tube prior to the routine exchange date.
--- NOTE | 2019-01-12 10:53 | DS ---
- Discharge Summary Admission Date: 01/11/19 Discharge Date: 01/12/19 Discharge Diagnosis: 1. Status Post PEG placement: No complications, start PEG nutrition 2. Head and neck cancer: cont. current therapy 3. Depression: resume home meds Discharge Medications: Medication Instructions Recorded Confirmed Type Biotin 5,000 mcg PO QAM 12/10/18 01/11/19 History Cholecalciferol (Vitamin D3) 2,000 unit PO QAM 12/10/18 01/11/19 History [Vitamin D3] Cyanocobalamin TAB* [Vitamin B12 1,000 mcg PO QAM 12/10/18 01/11/19 History TAB*] Finasteride [Proscar] 5 mg PO QAM 12/10/18 01/11/19 History Multivit-Min/Folic/Vit K/Lycop 1 tab PO QAM 12/10/18 01/11/19 History [One Daily Men's 50 Plus D3 Tab] Omeprazole 40 mg PO QAM 12/10/18 01/11/19 History PARoxetine HCl [Paroxetine HCl] 30 mg PO QAM 12/10/18 01/07/19 History Zinc 50 mg PO QAM 12/10/18 01/11/19 History buPROPion HCl [Bupropion HCl Sr] 2 tab PO QAM 12/10/18 01/11/19 History Chlorhexidine MOUTHWASH 0.12%* 1 dose 01/03/19 History [Peridex Mouth Wash 0.12%*] Hydrocodone/Acetaminophen 1 nydia PO Q4HR 01/03/19 01/11/19 History [Hydrocodone-Acetamn 7.5-325/15] OLANZapine [Zyprexa] 10 mg PO SEE INSTRUCTIONS #0 01/12/19 01/11/19 Rx Activity: No heavy lifting, walking as tolerated Wound Care: PEG gauze changed daily - Retention tacks to be removed in 01/17 @ hydration visit Disposition: Home Condition: Good Diet: cont. PO intake as tolerated - start PEG nutrition: Goal 7.5 cartons Jevity 1.2 - start with 1/2 cartoon QID and then follow template to get up to goal as per nutrition - [facility] to provide Jevity Hospital Course: Please see admission note for full H&P, however, briefly, Mr. Polanco is well known to our service due to his unfortunate diagnosis of head and neck cancer now initiating definitive therapy with Cisplatin/XRT, C1D1 01/10/19. He presented to the hospital for planned PEG placement with IR, Dr. Mcneil and was admitted for observation. His tolerated the procedure well wit no obvious signs of complications immediately and overnight. His counts are stable and he is feeling very well. He had nutrition consult this AM and will receive PEG care teaching with nursing staff. Mr. Polanco has been involved with his plan of care and denied questions. His , Ignacia, has been at the bedside during teaching. He will be discharged home in good condition with plan weekly follow- up. Follow-up: - Hydration 01/17/19 @ [facility] - f/u with hydration 01/24/19
[2019-01-12 11:08] VITALS: BP 129/83
== END 2019-01-12 13:15 | disposition home or self-care (01) ==
LOC: SSU 14:17
PROVIDERS: ADMIT Internal Medicine Hematology & Oncology; ATTEND Internal Medicine Hematology & Oncology
DX: C76.0 Malignant neoplasm of head, face and neck (principal); Z92.21 Personal history of antineoplastic chemotherapy; F32.9 Major depressive disorder, single episode, unspecified; Z79.899 Other long term (current) drug therapy; M51.35 Other intervertebral disc degeneration, thoracolumbar region; F41.9 Anxiety disorder, unspecified
CPT/HCPCS: 36415; 80053; 85014; 85018; 85025; 96374; 99219; 99239; G0378; J1642; J2405

== ENCOUNTER 2019-01-16 09:58 | Emergency (ER) | payer BC ==
--- NOTE | 2019-01-16 10:39 | ED ---
HPI Febrile Illness - HPI Summary HPI Summary: Patient is a 58 y/o M w/ throat cancer who presents to [facility] with complaints of fever of 100.7 F since this morning, 01/16/19. It is reported that the patient did not "feel well" this morning. Two temperature checks twenty minutes apart were done with temp of 100.7 F being captured each time. Patient is followed by Dr. Simon and last chemotherapy was 01/11/19. At this time, he also had a PEG tube placed. Patient had called Dr. Simon's office about his Sx and was advised to come to ED for evaluation. He denies cough and SOB. Diarrhea is endorsed but he relates this to his treatment. Some dysphagia is endorsed as well, which he relates to his diagnosis. No atypical pain is noted. On triage, pain is rated 7/ 10, nothing is noted to aggravate/alleviate Sx. Home medications and allergies are reviewed. - History of Current Complaint Chief Complaint: EDDizziness Time Seen by Provider: 01/16/19 10:26 Hx Obtained From: Patient Onset/Duration: Started Hours Ago, Still Present Timing: Constant, Lasting Hours Current Severity: Severe Pain Intensity: 7 Pain Scale Used: 0-10 Numeric Aggravating Factors: Nothing Alleviating Factors: Nothing Associated Signs and Symptoms: Diarrhea, Other: - positive - dysphagia; negative - cough, SOB - Additional Pertinent History Primary Care Physician: [id number] - Allergy/Home Medications Allergies/Adverse Reactions: Allergies Allergy/AdvReac Type Severity Reaction Status Date / Time No Known Allergies Allergy Verified 01/16/19 10:02 Home Medications: Home Medications Ibuprofen 800 mg PO TID 01/16/19 [History Confirmed 01/16/19] PMH/Surg Hx/FS Hx/Imm Hx Endocrine/Hematology History: Denies: Hx Diabetes Cardiovascular History: Denies: Hx Pacemaker/ICD, Other Cardiovascular Problems/Disorders Respiratory History: Reports: Other Respiratory Problems/Disorders - THROAT PAIN FOR THE LAST 2 MONTHS, CURRENT SMOKER Denies: Hx Sleep Apnea GI History: Reports: Hx Gastroesophageal Reflux Disease Denies: Other GI Disorders History: Denies: Hx Dialysis, Hx Renal Disease, Other Problems/Disorders Musculoskeletal History: Reports: Other Musculoskeletal History - DEGENERATIVE DISC DISEASE-SEES A CHIROPRACTOR Sensory History: Denies: Hx Cataracts, Hx Contacts or Glasses, Hx Hearing Aid Opthamlomology History: Denies: Hx Cataracts, Hx Contacts or Glasses Neurological History: Reports: Hx Headaches, Hx Seizures - STOPPED DRINKING ALCOHOL ABRUPTLY-HAD A SEIZURE-HOSP 2011 Denies: Other Neuro Impairments/Disorders Psychiatric History: Reports: Hx Anxiety Denies: Hx Panic Disorder - Cancer History Cancer Type, Location and Year: head and neck, current Hx Chemotherapy: No - SQUAMOUS CELL PER EMR Hx Radiation Therapy: Yes - Surgical History Surgery Procedure, Year, and Place: HERNIA REPAIR 2006-[facility] Hx Anesthesia Reactions: No Infectious Disease History: No Infectious Disease History: Reports: Hx Shingles - 22 yrs Denies: Traveled Outside the [place] in Last 30 Days - Family History Known Family History: Positive: Other - FMHx of dementia, cancer - Social History Alcohol Use: None Alcohol Amount: 2011 Substance Use Type: Reports: None Smoking Status (MU): Former Smoker Type: Cigarettes Amount Used/How Often: 1 ppd FOR 30 YEARS Length of Time of Smoking/Using Tobacco: 30 YEARS Have You Smoked in the Last Year: Yes Review of Systems Positive: Fever ENT: Other - positive - dysphagia Negative: Shortness Of Breath, Cough Positive: Diarrhea All Other Systems Reviewed And Are Negative: Yes Physical Exam - Summary Physical Exam Summary: VITAL SIGNS: Reviewed. GENERAL: Patient is a well-developed and nourished male who is lying comfortable in the stretcher. Patient is not in any acute respiratory distress. HEAD AND FACE: No signs of trauma. No ecchymosis, hematomas or skull depressions. No sinus tenderness. EYES: PERRLA, EOMI x 2, No injected conjunctiva, no nystagmus. EARS: Hearing grossly intact. Ear canals and tympanic membranes are within normal limits. MOUTH: Oropharynx within normal limits. Some drooling is noted. NECK: Supple, trachea is midline, no adenopathy, no JVD, no carotid bruit, no c- spine tenderness, neck with full ROM. CHEST: Symmetric, no tenderness at palpation. LUNGS: Coarse breath sounds noted. No wheezing or crackles. CVS: Regular rate and rhythm, S1 and S2 present, no murmurs or gallops appreciated. ABDOMEN: PEG tube in LUQ. Soft, non-tender. No signs of distention. No rebound, no guarding, and no masses palpated. Bowel sounds are normal. EXTREMITIES: FROM in all major joints, no edema, no cyanosis or clubbing. NEURO: Alert and oriented x 3. No acute neurological deficits. Speech is normal and follows commands. SKIN: Dry and warm. Triage Information Reviewed: Yes Vital Signs On Initial Exam: Initial Vitals Temp Pulse Resp BP Pulse Ox 98 F 99 16 123/91 97 01/16/19 10:00 01/16/19 10:00 01/16/19 10:00 01/16/19 10:00 01/16/19 10:00 Vital Signs Reviewed: Yes Procedures - Sedation Patient Received Moderate/Deep Sedation with Procedure: No Diagnostics - Vital Signs Vital Signs Temp Pulse Resp BP Pulse Ox 01/16/19 10:00 98 F 99 16 123/91 97 - Laboratory Result Diagrams: 01/16/19 10:54 01/16/19 10:54 Lab Statement: Any lab studies that have been ordered have been reviewed, and results considered in the medical decision making process. - Radiology CXR Radiology Interpretation Completed By: Radiologist Summary of Radiographic Findings: IMPRESSION: No active cardiopulmonary disease is noted. THIS REPORT WAS REVIEWED BY DR. PERLA. - EKG 1040 Cardiac Rate: NL - rate of 91 BP M EKG Rhythm: Sinus Rhythm Summary of EKG Findings: EKG showed NSR with rate of 91 BPM, normal axis, no ST elevations. This EKG was reviewed and interpreted by Dr. Perla. Re-Evaluation - Re-Evaluation First Eval Re-Evaluation Time: 15:01 Comment: I discussed all the findings and test results with the patient. Patient was instructed to return to the emergency room immediately if any of the symptoms return worsens. Plan of care was discussed with the patient and understands and agrees. All questions were answered at patient satisfaction. There were no further complaints or concerns. Lung exam before discharge: CTA B/ L. Good air exchange. No wheezing or crackles heard. CVS: S1 and S2 present. No murmurs appreciated. Patient is alert and oriented x 3. Patient is hemodynamically stable. Patient will be discharged home with follow up PCP in the next 2-3 days Course/Dx - Course Assessment/Plan: This patient is a 58-year-old male with history of throat cancer and current chemotherapy presents to the emergency room with a chief complaint of having a fever. Bloodwork shows WBCs of 17.2, hemoglobin 10.7, hematocrit 31 and platelets 313. CMP shows a sodium 133, potassium is 3.2, chloride 94, carbon dioxide is 33, BUNs 43, creatinine 1.71, glucose 123 and CRP of 44.24. Chest x-ray impression: No active cardiopulmonary disease. In the ED course the patient was given IV fluids since he seems to be slightly dehydrated. The patient also was given potassium for his hypokalemia. Since the patient is immunosuppressed and he has an increase in WBCs with a left shift , the patient was given Rocephin. I discussed the case with Dr. Purdy from oncology and he recommends to discharge the patient home with a prescription for Augmentin 500 mg 3 times a day. He also will follow with Dr. Simon on Thursday. I discussed all the findings and test results with the patient. Patient was instructed to return to the emergency room immediately if any of the symptoms return worsens. Plan of care was discussed with the patient and understands and agrees. All questions were answered at patient satisfaction. There were no further complaints or concerns. Lung exam before discharge: CTA B/ L. Good air exchange. No wheezing or crackles heard. CVS: S1 and S2 present. No murmurs appreciated. Patient is alert and oriented x 3. Patient is hemodynamically stable. Patient will be discharged home with follow up PCP in the next 2-3 days - Febrile Illness Differential Diagnoses: Bacteremia, Cellulitis - Diagnoses Provider Diagnoses: Leukocytosis, Throat cancer - Provider Notifications Discussed Care Of Patient With: Fransico Purdy Time Discussed With Above Provider: 13:19 Instructed by Provider To: Other - Patient's case was discussed with Dr. Purdy, he recommends prescribing augmentin and following up with Dr. Simon as out- patient in three days. Discharge ED - Sign-Out/Discharge Documenting (check all that apply): Patient Departure - discharge - Discharge Plan Condition: Stable Disposition: HOME Prescriptions: Amoxicillin/Clavulanate SUSP* [Augmentin SUSP*] 6 ml PO TID #180 ml Patient Education Materials: Fever in Adults (ED), Leukocytosis (ED) Referrals: Chana Bergman PA [Primary Care Provider] - 3 Days Cole Simon MD [Medical Doctor] - 3 Days Additional Instructions: PLEASE RETURN TO ED FOR ANY NEW OR WORSENING SYMPTOMS. PLEASE FOLLOW UP WITH YOUR PRIMARY CARE PHYSICIAN AND DR. SIMON WITHIN THREE DAYS. - Billing Disposition and Condition Condition: STABLE Disposition: Home - Attestation Statements Document Initiated by Scribe: Yes Documenting Scribe: MARGARETH ORONA Provider For Whom Scribe is Documenting (Include Credential): LINO PERLA MD Scribe Attestation: IMARGARETH, scribed for LINO PERLA MD on 01/17/19 at 1240. Scribe Documentation Reviewed: Yes Provider Attestation: The documentation as recorded by the MARGARETH hodge accurately reflects the service I personally performed and the decisions made by me, LINO PERLA MD Status of Scribe Document: Viewed
[2019-01-16 11:03] LABS: Hematocrit 31 % (42-52); Hemoglobin 10.5 g/dL (14.0-18.0); Mean Corpuscular HGB Conc 34 g/dL (31-36); Mean Corpuscular Hemoglobin 29 pg (27-31); Mean Corpuscular Volume 84 fL (80-94); Mean Platelet Volume 6.9 fL (7.4-10.4); Platelet Count 313 10^3/uL (150-450); Red Blood Count 3.67 10^6 /uL (4.18-5.48); Red Cell Distribution Width 12 % (10-15); White Blood Count 17.2 10^3/uL (3.5-10.8)
[2019-01-16 11:15] LABS: Calcium 8.8 mg/dL (8.6-10.3); Potassium 3.2 mmol/L (3.5-5.0); Total Bilirubin 0.4 mg/dL (0.2-1.0)
[2019-01-16 11:19] LABS: Activated Partial Thrombo Time 28.5 seconds (26.0-38.0); INR 1.04 (0.82-1.09)
[2019-01-16 11:21] LABS: Albumin/Globulin Ratio 1.3 (1-3); BUN/Creatinine Ratio 25.1 (8-20); C Reactive Protein 44.24 mg/L (<8.01); EGFR African American 50.4 (>60); EGFR Non-African American 41.6 (>60); Globulin 3.1 g/dL (2-4); Total Protein 7.1 g/dL (6.4-8.9)
[2019-01-16] MEDS ORDERED: Potassium Chlor TAB* 20 MEQ TAB.ER PO ONE (11:39)
[2019-01-16 11:42] LABS: ABS Eosinophils 0.3 10^3/ul (0-0.6); ABS Lymphocytes 0.9 10^3/ul (1.0-4.8); ABS Monocytes 1.8 10^3/ul (0-0.8); ABS Neutrophils 14.1 10^3/ul (1.5-7.7); Lymphocyte % 5.3 %; Nucleated Red Blood Cells % 0.1
[2019-01-16] MEDS ORDERED: Potassium Chloride* LIQUID 20 MEQ/15 ML UDC PO ONE (11:49)
[2019-01-16 12:21] LABS: Magnesium 2.1 mg/dL (1.9-2.7)
[2019-01-16] MEDS: NS 0.9% 1000 ML** 2,000 ML IV ONE ×2 (12:26→14:00)
[2019-01-16 12:35] LABS: Erythrocyte Sed Rate 48 mm/Hr (0-19)
[2019-01-16] MEDS ORDERED: cefTRIAXone(*) 1 GM in NS 0.9% 50 ML* 50 ML IVPB ONE (13:20)
[2019-01-16 15:23] VITALS: BP 129/80
== END 2019-01-16 15:23 | disposition home or self-care (01) ==
LOC: ED 09:58
DX: D72.829 Elevated white blood cell count, unspecified (principal); C14.0 Malignant neoplasm of pharynx, unspecified; Z93.1 Gastrostomy status; K21.9 Gastro-esophageal reflux disease without esophagitis; F41.9 Anxiety disorder, unspecified; Z85.89 Personal history of malignant neoplasm of other organs and systems; Z87.891 Personal history of nicotine dependence
CPT/HCPCS: 36415; 71046; 80053; 83605; 83735; 84484; 85025; 85610; 85652; 85730; 86140; 87040; 93005; 96361; 96365; 99284; A9270-GY; J0696; J1642